=== PATIENT | female | born 1980 ===

== ENCOUNTER 2025-02-14 09:04 | Day surgery (SDC) | payer OTHER ==
[~2025-02-14 09:04] MED LIST: CLONAZEPAM0.5 MG PO; LYRICA225 MG PO; RESTORIL30 M1 PO; TENORMIN50 M1 PO
[2025-02-14] MEDS ORDERED: POVIDONE-IODINE 118 ML BOTT TOP ONE (11:59)
[2025-02-14] MEDS ORDERED: METRONIDAZOLE/SODIUM CHLORIDE 500 MG/100 ML PIGGYBACK IV ONE (14:00)
[2025-02-14] MEDS ORDERED: MORPHINE SULFATE 4 MG/ML VIAL IV ONE ×2 (16:25→16:55)
[2025-02-14] MEDS ORDERED: METHYLERGONOVINE MALEATE 0.2 MG/ML AMPUL IV STA (16:29)
[2025-02-14] MEDS ORDERED: ZITHROMAX TRI-500 MG PO (16:36)
[2025-02-14] MEDS ORDERED: DICLOFENAC POTA50 MG PO (16:40)
[2025-02-14] MEDS ORDERED: METHYLERGONOVINE MALEATE 0.2 MG/ML AMPUL ONE (20:05)
== END 2025-02-14 20:45 | disposition home or self-care (01) ==
LOC: CIR.AMB 09:04
PROVIDERS: ATTEND Obstetrics & Gynecology
DX: D25.0 Submucous leiomyoma of uterus (principal); N92.0 Excessive and frequent menstruation with regular cycle; Z88.1 Allergy status to other antibiotic agents; Z88.0 Allergy status to penicillin